=== PATIENT | female | born 1965 | race Caucasian/White ===

== ENCOUNTER → 2016-02-22 | Day surgery (SDC) | payer BC ==
[~2016-02-22] MED LIST: ACETAMINOPHEN/HYDROcodone 325 MG/7.5 MG TAB ONE; IBUP-988 PO; IBUP100S PO; KETOROLAC TROMETHAMINE 30 MG/ML (IVP) VIAL IV PUSH ONE; LACTATED RINGER'S 1000 ML INJ 1,000 ML ONE; MIDAZOLAM HCL 2 MG/2 ML VIAL ONE; MULT1TAB84 PO; ONDANSETRON HCL 4 MG/2 ML VIAL IV PUSH ONE; PROPOFOL 200 MG/20 ML AMP IV ONE; PSEU30TA PO; TYLE500T PO; VALA1TAB PO; ceFAZolin INJ 1,000 MG VIAL ONE
--- NOTE | 2016-02-22 11:03 | MP ---
cc: KIERAN CAMILO M.D. DATE OF SURGERY: 02/22/2016 PREOPERATIVE DIAGNOSIS: Postmenopausal bleeding, suspect endometrial polyp. PROCEDURE Diagnostic hysteroscopy, fractional D&C. POSTOPERATIVE DIAGNOSIS Diagnostic hysteroscopy, fractional D&C. SURGEON: Kieran Camilo M.D. ANESTHESIA General with LMA ESTIMATED BLOOD LOSS None. DRAINS: Drains none OPERATIVE FINDINGS The patient had atrophic genitalia. Cervix is normal size and shape. Endocervical canal was free of any focal abnormality. No perforation, no lesion. No polyp. Endometrial cavity was atrophic, normal cavity symmetrical. Again no lesions identified. DESCRIPTION OF PROCEDURE The patient was taken up room under stable condition underwent general anesthesia with LMA placement. She received Ancef 2 grams prophylactically. She was carefully positioned in dorsolithotomy position using candy-cane stirrups and with sequential placed on lower extremities for VTE prophylaxis. She was prepped and draped time-out was conducted agreed by all present in the room. The procedure initiated by examining the cervix with a bivalve retractor, the uterus was midline to slightly anteverted. The cervix was dilated to accommodate a rigid 5 mm hysteroscope. The cervix is secured with a single-tooth tenaculum. Examination of the cavity was accomplished using normal saline as a distension media. The cavity was symmetrical, sampling of the endocervical and endometrial cavities were performed separately and tissue sent in formalin. At the completion of the case. There is no active bleeding. No perforation. The patient was stable. She was taken to recovery room on room air. Final count was correct. MD WILLIAM Hadley/irlanda /8:07 AM /10:46 AM
== END | disposition home or self-care (01) ==
LOC: ESDC 06:33
PROVIDERS: ATTEND Obstetrics & Gynecology
DX: N95.0 Postmenopausal bleeding (principal)
CPT/HCPCS: 00952; 58558; 88305; J0690; J1885; J2250; J2405; J3010; J7120

== ENCOUNTER 2016-04-20 17:53 | Emergency (ER) | payer BC ==
[~2016-04-20] VITALS: Ht 165.1 cm; Wt 75.0 kg
[~2016-04-20 17:53] MED LIST changes: -ACETAMINOPHEN/HYDROcodone 325 MG/7.5 MG TAB ONE; -IBUP100S PO; -KETOROLAC TROMETHAMINE 30 MG/ML (IVP) VIAL IV PUSH ONE; -LACTATED RINGER'S 1000 ML INJ 1,000 ML ONE; -MIDAZOLAM HCL 2 MG/2 ML VIAL ONE; -ONDANSETRON HCL 4 MG/2 ML VIAL IV PUSH ONE; -PROPOFOL 200 MG/20 ML AMP IV ONE; -PSEU30TA PO; -TYLE500T PO; -VALA1TAB PO; -ceFAZolin INJ 1,000 MG VIAL ONE
[2016-04-20 18:00] VITALS: BP 150/95; PULSE 66; RESP 16; TEMP 98.2; O2SAT 99
--- NOTE | 2016-04-20 18:09 | PD ---
HPI . possible bat scratch Chief Complaint: Skin Problem Time Seen by Provider: 18:09 Travel History International Travel<30 days: No Contact w/Intl Traveler<30days: No Traveled to known affect area: No History of Present Illness HPI 50-year-old female with no significant past medical history here with complaints of possibly being scratched by a bat in her scalp last night. Apparently patient was standing in her driveway and a bat flew by her. Suddenly she felt something hit her in the head and her daughter noticed the bat flying away. She is uncertain if it actually scratched her or if it bit her. She immediately cleaned her head with Hibiclens. She contacted her primary care provider who told her to come to the ED for further evaluation. We 've had a prolonged discussion with her, both myself and Dr. [place] and we have decided together that we will go head and opt for rabies immunoglobulin and vaccine. PFSH Past Medical History ?: Not Social History Tobacco Use: No Allergies-Medications (Allergen,Severity, Reaction): Coded Allergies: Versed (Verified Allergy, Unknown, prolonged effects.. dizziness, 04/20/16) Uncoded Allergies: PINE POLLIN (Allergy, Mild, CONGESTION, 12/16/02) Reported Meds & Prescriptions Reported Meds & Active Scripts Active No Active Prescriptions or Reported Medications Review of Systems General / Constitutional: No: Fever Eyes: No: Visual changes HENT: No: Headaches Cardiovascular: No: Chest Pain or Discomfort Respiratory: No: Shortness of Breath Gastrointestinal: No: Abdominal Pain Genitourinary: No: Dysuria Musculoskeletal: No: Pain Skin: No Rash Neurologic: No: Weakness Psychiatric: No: Depression Endocrine: No: Polydipsia Hematologic/Lymphatic: No: Easy Bruising Physical Exam Narrative GENERAL: AAO x 3, no acute distress, Well-nourished, well-developed patient. SKIN: Warm and dry. No visible rashes or bruising. scalp with a very small scabbed solitary lesion around a hair follicle without any surrounding erythema , edema, HEAD: Normocephalic and atraumatic. EYES: No scleral icterus. No injection or drainage. ENT: No nasal drainage noted. Mucous membranes pink. Airway patent. NECK: Supple, trachea midline. No JVD. CARDIOVASCULAR: Regular rate and rhythm without murmurs, gallops, or rubs. RESPIRATORY: Breath sounds equal bilaterally. No accessory muscle use. No rhonchi or rales. GASTROINTESTINAL: Abdomen soft, non-tender, nondistended. EXTREMITIES: No cyanosis or edema. BACK: Nontender without obvious deformity. No CVA tenderness. PSYCH: AAO x 3, normal affect. Data Data Last Documented VS Vital Signs Date Time Temp Pulse Resp B/P Pulse Ox O2 Delivery O2 Flow Rate FiO2 04/20/16 18:00 98.2 66 16 150/95 99 Orders Rabies Immune Globulin Inj (Hyperrab S/D (04/20/16 18:30) Rabies Vaccine Chick Emb Inj (Rabavert I (04/20/16 18:45) MDM Medical Decision Making Medical Screen Exam Complete: Yes Emergency Medical Condition: Yes Differential Diagnosis bat bite, folliculitis, rabies exposure Narrative Course 50-year-old female with no significant past medical history here with complaints of possibly being scratched by a bat in her scalp last night. Apparently patient was standing in her driveway and a bat flew by her. Suddenly she felt something hit her in the head and her daughter noticed the bat flying away. She is uncertain if it actually scratched her or if it bit her. She immediately cleaned her head with Hibiclens. She contacted her primary care provider who told her to come to the ED for further evaluation. We 've had a prolonged discussion with her, both myself and Dr. [place] and we have decided together that we will go head and opt for rabies immunoglobulin and vaccine. Patient seen and examined. Case discussed with Dr. [place]. Recommend rabies immunoglobulin and vaccination. 1.5 cc immunoglobulin administered in the scalp exposed area. The remainder was given IM at the deltoid, bilateral thighs. Rabies vaccination administered without incident. tetanus vaccine also updated today. Discussed with patient that she will need to receive vaccines on day 0, 3, 7 and 14. Today is day 0 Sunday 04/23 is Day 3 04/27 day 7 05/04 day 14 explained [facility]u at [facility] Patient verbalized understanding of instructions, questions were answered, and thanked me for their care. I advised them if their condition worsens, please return to the nearest emergency room for further care. Diagnosis Primary Impression: Animal scratch Additional Impression: Rabies exposure Patient Instructions: General Instructions, Rabies (ED), Rabies Vaccine (ED) Additional Instructions: Please return to emergency department if your symptoms return or worsen. Follow up with your primary care provider. If you develop any signs of infection including redness, swelling, pus drainage , or streaking, please return to the emergency department immediately. Vaccination will be done: Today is day 0 Sunday 04/23 is Day 3 04/27 day 7 05/04 day 14 You will get the vaccine at the [facility], but return here if they are closed (weekends/holidays). Med/Other Pt SpecificInfo: No Change to Meds Scripts No Active Prescriptions or Reported Meds Disposition: 01 DISCHARGE HOME Condition: Stable Tatiana Fuchs Apr 20, 2016 18:09
[2016-04-20] MEDS ORDERED: RABIES IMMUNE GLOBULIN INJ 1,500 UNITS/10 ML VIAL IM ONE (18:30)
[2016-04-20] MEDS ORDERED: RABIES VACCINE CHICK EMB INJ 2.5 UNITS/ML SYR IM ONE (18:45)
[2016-04-20] MEDS ORDERED: TETANUS/DIPHTHERIA TOXOID ADULT 0.5 ML VIAL IM ONE (19:45)
[2016-04-20 19:50] VITALS: BP 145/76
[2016-06-29] MEDS ORDERED: VALA1TAB PO (13:15)
== END 2016-04-20 19:50 | disposition home or self-care (01) ==
LOC: PHEFT 17:53
DX: S00.01XA Abrasion of scalp, initial encounter (principal); Z23 Encounter for immunization; Z20.3 Contact with and (suspected) exposure to rabies; W55.82XA Struck by other mammals, initial encounter
CPT/HCPCS: 90375; 90471; 90472; 90675; 90714; 96372

== ENCOUNTER 2016-04-23 08:54 | Emergency (ER) | payer BC, OTHER ==
[~2016-04-23] VITALS: Ht 165.1 cm; Wt 75.0 kg
[2016-04-23 09:07] VITALS: BP 120/80; PULSE 82; RESP 15; TEMP 98.1; O2SAT 97
--- NOTE | 2016-04-23 10:25 | PD ---
HPI Chief Complaint: Bite or Sting Time Seen by Provider: 10:18 Travel History International Travel<30 days: No Contact w/Intl Traveler<30days: No Traveled to known affect area: No History of Present Illness HPI Patient presents for day 3 vaccination for rabies. PFSH Past Medical History Medical History: Denies Significant Hx ?: Not Past Surgical History Surgical History: No Previous Surgery Social History Alcohol Use: No Tobacco Use: No Substance Use: No Allergies-Medications (Allergen,Severity, Reaction): Coded Allergies: Versed (Verified Allergy, Severe, 04/23/16) AMNESIA Reported Meds & Prescriptions Reported Meds & Active Scripts Active No Active Prescriptions or Reported Medications Review of Systems General / Constitutional: No: Fever Eyes: No: Visual changes HENT: No: Headaches Cardiovascular: No: Chest Pain or Discomfort Respiratory: No: Shortness of Breath Gastrointestinal: No: Abdominal Pain Genitourinary: No: Dysuria Musculoskeletal: No: Pain Skin: No Rash Neurologic: No: Weakness Psychiatric: No: Depression Endocrine: No: Polydipsia Hematologic/Lymphatic: No: Easy Bruising Physical Exam Narrative GENERAL: Well-nourished, well-developed patient. SKIN: Warm and dry. HEAD: Normocephalic. EYES: No scleral icterus. No injection or drainage. NECK: Supple, trachea midline. No JVD or lymphadenopathy. CARDIOVASCULAR: Regular rate and rhythm without murmurs, gallops, or rubs. RESPIRATORY: Breath sounds equal bilaterally. No accessory muscle use. GASTROINTESTINAL: Abdomen soft, non-tender, nondistended. MUSCULOSKELETAL: No cyanosis, or edema. BACK: Nontender without obvious deformity. No CVA tenderness. Data Data Last Documented VS Vital Signs Date Time Temp Pulse Resp B/P Pulse Ox O2 Delivery O2 Flow Rate FiO2 04/23/16 09:07 98.1 82 15 120/80 97 Orders Rabies Vaccine Chick Emb Inj (Rabavert I (04/23/16 10:30) MDM Medical Decision Making Medical Screen Exam Complete: Yes Emergency Medical Condition: Yes Differential Diagnosis Rabies Narrative Course Assessment and plan discussed with patient and at bedside. Vaccination given. Diagnosis Primary Impression: Rabies, need for prophylactic vaccination against Additional Instructions: Encouraged follow-up with Count includes the [facility] for vaccination on day 7 and 14 Med/Other Pt SpecificInfo: No Meds Exist/No RX given Scripts No Active Prescriptions or Reported Meds Disposition: 01 DISCHARGE HOME Condition: Good Brian Hargrove MD Apr 23, 2016 10:25
[2016-04-23] MEDS ORDERED: RABIES VACCINE CHICK EMB INJ 2.5 UNITS/ML SYR IM ONE (10:30)
[2016-04-23] MEDS ORDERED: RABIES VACCINE HUMAN DIPL CELL 2.5 UNITS/ML SYRINGE IM ONE (11:00)
[2016-06-29] MEDS ORDERED: VALA1TAB PO (13:15)
== END 2016-04-23 11:00 | disposition home or self-care (01) ==
LOC: MERGE 08:54 → PHED 08:54
DX: Z00.8 Encounter for other general examination (principal); Z23 Encounter for immunization
CPT/HCPCS: 90471; 90675